=== PATIENT | male | born 1960 | race Two or more races ===

== ENCOUNTER 2021-07-17 09:52 | Emergency (ER) | payer OTHER ==
[~2021-07-17] VITALS: Ht 165.1 cm; Wt 102.1 kg
[2021-07-17 10:01] VITALS: BP 163/91
--- NOTE | 2021-07-17 10:03 | NUR ---
Dr Moreno at the bedside.
--- NOTE | 2021-07-17 10:05 | NUR ---
The patient bibs for c/o swelling/pain on left side of face x1wk. Per patient she has a cyst on her left side of the face for year. The patient rates pain 5/10. No discharge noted. Will continue to monitor the patient.
[2021-07-17] MEDS ORDERED: CEPHALEXIN MONOHYDRATE 500 MG CAPSULE PO ONE ×2 (10:14→10:30)
[2021-07-17] MEDS ORDERED: SULFAMETH/TRIMETH 800/160 MG 1 UDTAB TABLET ONE (10:14)
[2021-07-17] MEDS ORDERED: SULF1TAB48 PO (10:21)
[2021-07-17] MEDS ORDERED: CEPH500C2 PO (10:21)
--- NOTE | 2021-07-17 10:28 | NUR ---
dPatient discharged to home in stable condition. Written and verbal after care instructions given. Patient verbalizes understanding of instruction.
[2021-07-17] MEDS ORDERED: SULFAMETH/TRIMETH 800/160 MG 1 UDTAB TABLET PO ONE (10:30)
== END 2021-07-17 10:28 | disposition home or self-care (01) ==
LOC: ER 09:59
DX: L72.9 Follicular cyst of the skin and subcutaneous tissue, unspecified (principal); L03.211 Cellulitis of face; I10 Essential (primary) hypertension; J45.909 Unspecified asthma, uncomplicated; Z79.899 Other long term (current) drug therapy
CPT/HCPCS: 99283; A6403